=== PATIENT | male | born 1985 | race Caucasian/White ===

== ENCOUNTER 2016-03-08 17:25 | Emergency (ER) | payer OTHER ==
[2016-03-08] MEDS ORDERED: IBUPROFEN 800 MG TABLET PO STA (19:34)
[2016-03-08] MEDS ORDERED: IBUPROFEN 800 MG TABLET PO ONE (19:36)
[2016-03-08] MEDS ORDERED: CEPHALEXIN 250 MG CAPSULE PO STA (20:20)
[2016-03-08] MEDS ORDERED: DEXAMETHASONE 10 MG/ML VIAL PO STA (20:20)
[2016-03-08] MEDS ORDERED: CEPHALEXIN 250 MG CAPSULE PO ONE (20:25)
[2016-03-08] MEDS ORDERED: DEXAMETHASONE 10 MG/ML VIAL ONE (20:25)
== END 2016-03-08 20:39 | disposition home or self-care (01) ==
DX: J02.0 Streptococcal pharyngitis (principal); R50.9 Fever, unspecified
CPT/HCPCS: 99283; A9270

== ENCOUNTER 2017-06-03 15:59 | Emergency (ER) | payer OTHER ==
[2017-06-03 16:19] VITALS: BP 124/74
[2017-06-03] MEDS ORDERED: DEXAMETHASONE 10 MG/ML VIAL PO STA (16:46)
--- NOTE | 2017-06-03 16:48 | ED Physician Documentation ---
History of Present Illness - Stated complaint Stated Complaint: FLU LIKE SYMPTOMS - Chief complaint Chief Complaint: Fever - History obtained from History obtained from: Patient - History of Present Illness Timing: Today - Additonal information Additional information: 32-year-old otherwise healthy male has developed acute fever with muscle aches and pains and a feeling of fatigue. He states this has come on rapidly and he feels it is heavy to lift up his legs. He has children at home that are ill right now with cough and congestion. He has not developed congestion or cough. Review of Systems Constitutional: reports: Fever, Myalgias, Fatigue Eyes: denies: Decreased vision Ears: denies: Ear pain Nose: denies: Rhinorrhea / runny nose, Congestion Throat: denies: Sore throat Cardiac: denies: Chest pain / pressure, Palpitations Respiratory: denies: Dyspnea, Cough GI: denies: Abdominal Pain, Nausea, Vomiting : denies: Dysuria, Frequency Skin: denies: Rash Musculoskeletal: denies: Neck pain, Back pain, Extremity pain Neurologic: denies: Generalized weakness, Focal weakness, Numbness PD PAST MEDICAL HISTORY - Past Surgical History Past Surgical History: No - Present Medications Home Medications: Ambulatory Orders Medication Instructions Recorded Confirmed Cephalexin [Keflex] 500 mg PO QID #24 capsule 03/08/16 Fluticasone [Flonase] 1 spray PO DAILY 03/08/16 03/08/16 Azithromycin [Zithromax] 250 mg PO DAILY #6 tablet 06/03/17 - Allergies Allergies/Adverse Reactions: Allergies Allergy/AdvReac Type Severity Reaction Status Date / Time No Known Drug Allergies Allergy Verified 06/03/17 16:14 - Social History Does the pt smoke?: No Smoking Status: Never smoker Does the pt drink ETOH?: No Does the pt have substance abuse?: No PD ED PE NORMAL - Vitals Vital signs reviewed: Yes (febrile ) - General General: Alert and oriented X 3, No acute distress, Well developed/nourished - HEENT HEENT: Atraumatic, PERRL, EOMI, Pharynx benign, Other (both TM's are inflamed with rounding of the umbo. ) - Neck Neck: Supple, no meningeal sign, No bony TTP - Cardiac Cardiac: RRR, No murmur - Respiratory Respiratory: No respiratory distress, Clear bilaterally - Abdomen Abdomen: Soft, Non tender - Back Back: No CVA TTP, No spinal TTP - Derm Derm: Normal color, Warm and dry, No rash - Extremities Extremities: No deformity, No edema - Neuro Neuro: No motor deficit, No sensory deficit Eye Opening: Spontaneous Motor: Obeys Commands Verbal: Oriented GCS Score: 15 - Psych Psych: Normal mood, Normal affect Results - Vitals Vitals: Vital Signs - 24 hr 06/03/17 16:07 Temperature 37.9 C H Heart Rate 87 Respiratory 16 Rate Blood Pressure 124/74 O2 Saturation 100 Oxygen O2 Source Room air PD MEDICAL DECISION MAKING - ED course Complexity details: reviewed old records, considered differential, d/w patient ED course: 32-year-old male with acute onset of febrile illness has otitis on examination and exposure to sick individuals. He is treated here in the emergency department with dexamethasone we will place him on some azithromycin. Departure - Departure Disposition: 01 Home, Self Care Clinical Impression: Otitis media Qualifiers: Otitis media type: suppurative Chronicity: acute Laterality: bilateral Recurrence: not specified as recurrent Spontaneous tympanic membrane rupture: without spontaneous rupture Qualified Code(s): H66.003 - Acute suppurative otitis media without spontaneous rupture of ear drum, bilateral Condition: Stable Instructions: ED Otitis Media Acute Adult Follow-Up: [facility] [Provider Group] Prescriptions: Azithromycin [Zithromax] 250 mg PO DAILY #6 tablet Forms: Activity restrictions
== END 2017-06-03 16:59 | disposition home or self-care (01) ==
LOC: ED 15:59
DX: H66.003 Acute suppurative otitis media without spontaneous rupture of ear drum, bilateral (principal)
CPT/HCPCS: 99281; 99283

== ENCOUNTER 2020-10-13 10:34 | Emergency (ER) | payer OTHER ==
[2020-10-13 11:02] VITALS: BP 150/73
--- NOTE | 2020-10-13 12:42 | ED Physician Documentation ---
History of Present Illness - Stated complaint Stated Complaint: SPIDER BITE - Chief complaint Chief Complaint: Wound - History obtained from History obtained from: Patient - History of Present Illness Timing: How many days ago (4) Pain level max: 0 Pain level now: 0 - Additonal information Additional information: 35-year-old male states that he has noticed redness to his left forehead and scalp for the past 4 days. He states it does not hurt and does not itch. He states occasionally it swells when he is asleep and then seems to get better as the day goes on. He has noted swelling to the left side of the neck as well. No vision changes. No fever, chills. No cough or congestion. Does not recall any trauma. Nothing makes it better or worse. Review of Systems Constitutional: denies: Fever, Chills Respiratory: denies: Cough GI: denies: Vomiting Musculoskeletal: denies: Neck pain, Back pain Neurologic: denies: Headache PD PAST MEDICAL HISTORY - Past Medical History Past Medical History: No - Past Surgical History Past Surgical History: No - Present Medications Home Medications: Ambulatory Orders Medication Instructions Recorded Confirmed Fluticasone [Flonase] 1 spray PO DAILY 03/08/16 10/13/20 Valacyclovir HCl [Valtrex] 1,000 mg PO TID #21 tablet 10/13/20 clindamycin HCL [Cleocin HCl] 300 mg PO Q6H #40 cap 10/13/20 - Allergies Allergies/Adverse Reactions: Allergies Allergy/AdvReac Type Severity Reaction Status Date / Time No Known Drug Allergies Allergy Verified 10/13/20 11:02 - Social History Does the pt smoke?: No Smoking Status: Never smoker Does the pt drink ETOH?: No Does the pt have substance abuse?: No PD ED PE NORMAL - Vitals Vital signs reviewed: Yes - General General: Alert and oriented X 3, No acute distress - HEENT HEENT: PERRL, EOMI, Ears normal, Moist mucous membranes, Pharynx benign, Other (Mild 1 x 2 cm area of erythema to the left forehead. No tenderness. No vesicles. No pustules. No scaling. No scabbing. ) - Neck Neck: Supple, no meningeal sign, Other (Mild left-sided anterior cervical lymphadenopathy.) - Cardiac Cardiac: RRR - Respiratory Respiratory: No respiratory distress, Clear bilaterally - Derm Derm: Warm and dry - Neuro Neuro: Alert and oriented X 3 - Psych Psych: Normal mood, Normal affect Results - Vitals Vitals: Vital Signs - 24 hr 10/13/20 10:59 Temperature 36.2 C L Heart Rate 65 Respiratory 16 Rate Blood Pressure 150/73 H O2 Saturation 100 Oxygen O2 Source Room air PD MEDICAL DECISION MAKING - ED course Complexity details: considered differential, d/w patient ED course: Unclear etiology the patient's symptoms. Possible mild cellulitis, no pain. Also does not have any appearance of shingles after 4 days also with no pain. The lymphadenopathy appears to be reactive. We will trial on antibiotics and antivirals to see if he improves. There is no evidence of herpes keratitis. Patient counseled regarding signs and symptoms for which I believe and urgent re-evaluation would be necessary. Patient with good understanding of and agreement to plan and is comfortable going home at this time This document was made in part using voice recognition software. While efforts are made to proofread this document, sound alike and grammatical errors may occur. Departure - Departure Disposition: 01 Home, Self Care Clinical Impression: Rash Condition: Good Instructions: ED Dermatitis Non Specific Rash Follow-Up: your,doctor in 1 week for further care. [Other] Prescriptions: clindamycin HCL [Cleocin HCl] 300 mg PO Q6H #40 cap Valacyclovir HCl [Valtrex] 1,000 mg PO TID #21 tablet Comments: We will try you on an antibiotic and an antiviral. This could be shingles, this could also be a bacterial infection. Take all medication until gone. Return if you worsen. Discharge Date/Time: 10/13/20 12:50
== END 2020-10-13 12:50 | disposition home or self-care (01) ==
LOC: ED 10:34
DX: R21 Rash and other nonspecific skin eruption (principal); R59.0 Localized enlarged lymph nodes
CPT/HCPCS: 99282; 99284